=== PATIENT | male | born 1975 | race Two or more races ===

== ENCOUNTER 2022-11-02 13:37 | Outpatient (CLI) | payer OTHER ==
--- NOTE | 2022-11-02 13:32 | SLEEP CARE CONSULTATION ---
Information from patient questionnaire entered by Jessi Martin. I have reviewed and concur with the information entered by Jessi Martin. This document represents the service I personally performed and the decisions made by me, Mary Coreas ARNP. History of Present Illness Service Date and Time: 11/02/2022 1320 Previous diagnosis: Moderate, Obstructive Sleep Apnea-Hypopnea Syndrome AHI: 18.4 (in 2019) Reason for follow up: other (2 MONTH F/U) Equipment type: CPAP (RESMED Airsense 10; s/u 2018) Equipment obtained from: [facility] (getting supplies) Mask style: Nasal pillows Backup mask available: No (will need to keep old mask when replaced) Prior sleep studies: Yes Year and Where: 2018 HPI additional information: SHONA KOVACS was diagnosed to have moderate, AHI 18.4, obstructive sleep apnea-hypopnea syndrome and returns via video telehealth visit today for CPAP therapy 2 month follow-up. Sleep Study - Results Prior sleep studies: Yes Year and Where: 2018 CPAP Compliance Data - Data Reviewed with Patient Average duration of nightly device use: 5 hours 0 minutes Compliance rate %: 20 (16/60 days used) Current pressure setting (cmH2O): 6-12 Average residual AHI: 1 Central apnea: 0.1 Obstructive apnea: 0.7 Average large leak: 1 L/min Subjective Missed days of use due to: reports: mask issues Patient concerns: reports: mask discomfort (nasal pillows were too big; smaller size feels better; waiting for shipment), dry mouth, nose, throat (occasional ly), other (soreness from nasal pillows, too big). denies: aerophagia, air blowing in eyes, mask leak noise, condensation in mask/hose, nasal congestion Observed to snore while using device: No Current pressure setting perceived as: comfortable On therapy, patient: reports: sleeping better, awakening more refreshed, being more awake and alert during the day, more rested overall. denies: drowsiness while driving Initial [place] Sleepiness Scale score: 7 (08/31/22) Current [place] Sleepiness Scale score: 8 (11/02/22) Allergies and Home Medications Known drug allergies: No Drug allergies reviewed: Yes Home medication list reviewed: Yes (no changes) Allergy and home medication list: Allergies No Known Drug Allergies Allergy (Verified 11/01/22 11:49) Review of Systems Review of systems same as previous: Yes (no changes) Physical Exam Vital signs obtained and entered by: JESSI Hardy MA Height: 5 ft 9 in (PER PT) Weight: 218 lb (PER PT) Body Mass Index: 32.1 BMI Classification: Obese Impression and Plan 1. Obstructive Sleep Apnea-Hypopnea Syndrome, moderate, with poor treatment compliance and good apnea control. On CPAP therapy, the patient has better sleep quality and is more rested overall. He states the nasal pillows mask he has been using has been causing some nose soreness. But, he thinks it is due to the size. He switched from a medium cushion to small and it was much more comfortable. His dog got to his mask cushion and he has some more ordered and expects their delivery any time. Obviously this has affected his compliance. He will follow up in 1-2 months to recheck compliance and make sure the mask issue is resolved. Patient's apnea severity and rationale for treatment to reduce apnea, improve s leep quality and reduce cardiovascular and cerebrovascular events was reviewed. 2. Obesity, unspecified. Currently patients BMI is 32.1. Obesity increases the risk of apnea, CPAP pressure requirements and overall health risks especially cardiovascular and diabetes. Thus patient is advised to lose weight. * Continue auto CPAP pressure at 6-12 cmH2O * Notify me if snoring with mask or feeling that the pressure is too much or too little * Attempt to lose weight * Call this office if any problems using CPAP * Return for follow up in 1-2 months, or sooner if concerns arise Counseling Topics: Spare mask, Weight loss health impact Visit Type: Telehealth Video Video Type: Doximity Patient Location: Car Location of Provider: Office Patient agrees and consents to this telehealth visit type: Yes Patient agrees to have their insurance billed: Yes Time Spent with Patient (minutes): 12 Provider Statement: I spent 100% of the Telehealth Video Call with the patient with greater than 50% spent counseling the patient and coordination of care.
== END 2022-11-02 13:38 | disposition home or self-care (01) ==
LOC: SC 13:37
PROVIDERS: ATTEND Nurse Practitioner Family
DX: G47.33 Obstructive sleep apnea (adult) (pediatric) (principal); E66.9 Obesity, unspecified; Z68.32 Body mass index [BMI] 32.0-32.9, adult